=== PATIENT | male | born 1980 | race Caucasian/White ===

== ENCOUNTER 2017-07-21 00:08 | Inpatient (IN) | payer BC, OTHER ==
[~2017-07-21] VITALS: Ht 182.9 cm; Wt 68.0 kg
[~2017-07-21 00:08] MED LIST: ASCO250T5 PO; FERR325T28 PO; HYDR-3895 PO; QUET300T2 PO
--- NOTE | 2017-07-21 00:19 | NUR ---
PRE ADMISSION NOTE Pt is a 36 y/o male, seen at intake, AAOx4, no SOB with moderate anxiety and restlessness noted at this time. Discussed with patient the admission policies of the unit. Patient is coherent and able to respond to questions appropriately. Pt is ambulatory with steady gait. Vital signs taken and as follows: BP: 98/88, P: 88, R: 16, O2: 98%, T: 98.4, PA: 0. Pt verbalized understanding of instructions and teachings regarding disposal of narcotic and other controlled home medications, unit protocols such as taking of vital signs Q4H and handling and disposal of contraband. Will continue with admission upon pts arrival on the unit.
[2017-07-21] MEDS ORDERED: ACETAMINOPHEN 325 MG TABLET PO PRN (00:30)
[2017-07-21] MEDS ORDERED: LOPERAMIDE HCL 2 MG CAPSULE PO PRN ×2 (00:30)
[2017-07-21] MEDS ORDERED: HYDROXYZINE PAMOATE 25 MG CAPSULE PO PRN ×2 (00:30→13:15)
[2017-07-21] MEDS ORDERED: MAG HYDROX/AL HYDROX/SIMETH 30 ML LIQUID UDC PO PRN (00:30)
[2017-07-21] MEDS ORDERED: IBUPROFEN 400 MG TABLET PO PRN (00:30)
[2017-07-21] MEDS ORDERED: CLONIDINE HCL 0.1 MG TABLET PO PRN (00:30)
[2017-07-21] MEDS ORDERED: DICYCLOMINE HCL 20 MG TABLET PO PRN (00:30)
[2017-07-21] MEDS ORDERED: METHOCARBAMOL 750 MG TABLET PO PRN (00:30)
[2017-07-21] MEDS ORDERED: ONDANSETRON 4 MG/2 ML VIAL IM PRN (00:30)
[2017-07-21] MEDS ORDERED: MIRALAX 17 GM POWD.PACK PO PRN (00:30)
[2017-07-21] MEDS ORDERED: MAGNESIUM HYDROXIDE 30 ML LIQUID UDC PO PRN (00:30)
[2017-07-21] MEDS ORDERED: ONDANSETRON ODT 4 MG TAB.RAPDIS SL PRN (00:30)
[2017-07-21] MEDS ORDERED: LORAZEPAM 1 MG TABLET PO PRN ×2 (00:30)
[2017-07-21] MEDS ORDERED: LORAZEPAM 2 MG/1 ML VIAL IM PRN (00:30)
[2017-07-21] MEDS ORDERED: diphenhydrAMINE 50 MG CAPSULE PO PRN (00:30)
[2017-07-21 01:05] VITALS: BP 98/58
--- NOTE | 2017-07-21 01:05 | NUR ---
ADMISSION NOTE Pt is a 36 y/o male admitted on 07/21/17 for dependence, arrived on the unit at 0105. Pt has NKA, denies history of seizures. Upon admission CIWA 5, COW 4 BP: 98/58, P: 88, R: 16, O2: 98%, T: 98.4, PA: 0. Weight 150, height 60. Pt reports his PCP is Dr. Augustin in [place], smokes 2 packs daily, denies being hospitalized within past 30 days. Pt is able to understand and respond to all questions pertaining to his hospitalization. Substance Abuse History is as follows: 1. Xanax (PO) 12 mg daily, last intake of 4 mg at 1500 on 07/20/17, at this rate for 4 years. 2. Heroin (IV) 0.5 gram daily, last intake 1/8 gram at 2230 on 07/20/17, at this rate for 10 years. 3. Meth (oral inhalation) "about 20 dollars worth" approximately twice monthly, last intake of "about 20 dollars worth" on 07/19/17, at this rate for 5 years. 4. Tobacco 2 packs daily, last intake of two packs on 07/20/17, at this rate for 10 years. Pts longest sober period for 1 year approximately 4 months ago, per pt. Treatment history: Pt reports the following treatment histories: [facility] in [place] for 30 days, 9 years ago, [facility] x 3, "I dont remember when or for how long," [facility] in [place] for 40 days, 4 years ago, and [facility] for 6-7 days, 1.5 years ago. No family medical or substance abuse history. PMH: Migraines, kidney stones (2013), and surgery to his right ankle with no complications (2013). Pt denies any hx of seizures. Pt did not bring any medications from home, but reports taking Seroquel 300 mg and Trazodone 150 mg PO nightly at home. Upon assessment, pt is AAOx4, pt is mildly intoxicated, presents with moderate anxiety and restlessness. Respirations even and unlabored. Denies SOB, chest pain, N/V/D. Bowel sounds active x 4, abdomen soft. PERRLA. Skin intact, no open wounds noted. Pt denies SI/HI. Educational information provided and left at bedside. Pt oriented to room and encouraged to notify staff with any concerns. Safety measures in place. Call light within reach, side rails up x 2 with pads, bed locked and in low position. Will continue to monitor.
[2017-07-21] MEDS ORDERED: QUETIAPINE FUMARATE 200 MG TABLET PO ONE (03:00)
[2017-07-21] MEDS ORDERED: QUETIAPINE FUMARATE 200 MG TABLET ONE (03:21)
--- NOTE | 2017-07-21 03:47 | NUR ---
x 1 SEROQUEL 200 MG ADMINISTRATION Pt requests sleep aid, reports that he typically takes 300 mg Seroquel nightly at home and is "the only successful medication for sleep." Safety measures in place. Call light within reach. Will continue to monitor.
[2017-07-21 04:00] VITALS: BP 85/96
[2017-07-21] MEDS ORDERED: TRAZ-147 PO (04:09)
[2017-07-21 04:28] LABS: *AMPHETAMINE, URINE POSITIVE (NEGATIVE); *BARBITURATE, URINE NEGATIVE (NEGATIVE); *CANNABINOID, URINE NEGATIVE (NEGATIVE); *COCCAINE, URINE NEGATIVE (NEGATIVE); *OPIATE, URINE POSITIVE (NEGATIVE); *PHENCYCLIDINE SCREEN,URINE NEGATIVE (NEGATIVE)
--- NOTE | 2017-07-21 04:47 | NUR ---
PRN SEROQUEL REASSESSMENT Pt is laying in bed with eyes closed. Respirations 16, even and unlabored. Safety measures in place. Call light within reach. Will continue to monitor.
--- NOTE | 2017-07-21 07:15 | NUR ---
END OF SHIFT Pt is a 36 y/o male admitted on 07/21/17 for benzo and opiate dependence. Pt was dependent on 12 mg Xanax PO daily for 8 months, 0.5 gram of heroin IV for 10 years and occasional meth usage. Pt is full code, regular diet, NKA, and fall/seizure precautions. No reported seizure history. Pt reports PMH of migraines, especially during withdrawal. Pt also reports having kidney stones (2013) and right ankle surgery (2013). Pt came in mildly intoxicated during initial assessment. Pt presented with anxiety, restlessness, and irritability. One time order of Seroquel 200 mg administered for sleep aid. Pt reported mild improvement in anxiety and irritability during shift. Last CIWA 4 and COW 3. Slept 3 hours. Intake 1500 ml, void x 1, stool x 0. Safety measures in place. Call light within reach. Pts needs have been met. Endorsed to day shift nurse.
--- NOTE | 2017-07-21 07:30 | NUR ---
START OF SHIFT Pt is a 36 yr old male, A&Ox4. Pt was admitted on 07/21/17 at 0100 for Benzo/Opiate Dependence and is on PRN's for s/s of w/d. Received report from shift engineer nurse. Pt received Seroquel x1 for sleep aid. Medication was effective. Last COWS score was 3, CIWA score was 4 at 0400. Pt is currently in bed sleeping with respirations even and unlabored. No acute distress noted. RR is 16. Pt is on fall and seizure precautions. Bed kept in low position and locked with side rails up x2. Call light is within reach. Will continue to monitor.
[2017-07-21 07:49] LABS: ETHANOL < 3 MG/DL (0-0)
[2017-07-21 07:56] LABS: ALANINE AMINOTRANSFERASE 20 U/L (16-63); ALKALINE PHOSPHATASE 92 U/L (50-136); AMYLASE 48 U/L (25-115); ASPARTATE AMINOTRANSFERASE 19 U/L (15-37); BILIRUBIN,TOTAL 0.3 mg/dL (0.2-1.0); CARBON DIOXIDE 29 mmol/L (21-32); CHLORIDE 102 mmol/L (98-107); CREATININE 0.9 mg/dL (0.6-1.3); GLUCOSE 94 mg/dL (74-106); LIPASE 117 U/L (73-393); MAGNESIUM 1.9 mg/dL (1.8-2.4); POTASSIUM 3.8 mmol/L (3.5-5.1); TOTAL PROTEIN, SERUM 6.7 g/dL (6.4-8.2); UREA NITROGEN, BLOOD 11 mg/dL (7-18)
--- NOTE | 2017-07-21 08:00 | NUR ---
COWS AND CIWA DEFERRED COWS and CIWA was deferred. Pt is not able to assessed d/t pt is asleep with respirations even and unlabored. RR is 16. Safety precautions observed. Will continue to monitor.
[2017-07-21 08:05] VITALS: BP 95/56
[2017-07-21 08:57] LABS: THYROID STIMULATING HORMONE 0.575 mIU/mL (0.358-3.740)
[2017-07-21] MEDS: MULTIVITAMINS,THERAPEUTIC TABLET PO SCH (09:00)
[2017-07-21] MEDS ORDERED: INFLUENZA VACCINE 2017-2018 0.5 ML DISP.SYRIN IM ONE (09:00)
--- NOTE | 2017-07-21 09:36 | NUR ---
MEDICATION HELD Multivitamin and influenza was held d/t pt was too sedative. Pt is arousable to touch but is unable to wake up. RR 16. Safety precautions observed. Call light is within reach. will continue to monitor.
[2017-07-21 12:00] VITALS: BP 92/49
[2017-07-21] MEDS ORDERED: BUPRENORPHINE HCL 2 MG TAB.SUBL SL SCH (13:00)
[2017-07-21] MEDS ORDERED: LORAZEPAM 1 MG TABLET PO SCH (13:00)
[2017-07-21 14:14] LABS: BASOPHILS % (AUTO) 0.8 % (0.0-2.0); EOSINOPHILS # (AUTO) 0.1 K/uL (0.0-0.7); HEMATOCRIT 34.8 % (40-50); HEMOGLOBIN 11.5 G/DL (14.0-18.0); LYMPHOCYTES # (AUTO) 2.8 K/UL (0.8-4.8); LYMPHOCYTES % (AUTO) 45.8 % (20.5-51.5); MEAN CORPUSCULAR HEMOGLOBIN 27.8 UUG (27.0-31.0); MEAN CORPUSCULAR HGB CONC 33 g/dL (32.0-37.0); MEAN CORPUSCULAR VOLUME 84.2 FL (82.0-92.0); MONOCYTES # (AUTO) 0.8 K/UL (0.1-1.30); MONOCYTES % (AUTO) 12.8 % (0.0-11.0); NEUTROPHILS # (AUTO) 2.3 K/UL (1.8-8.9); NEUTROPHILS % (AUTO) 38.6 % (38.5-71.5); PLATELET COUNT (AUTO) 214 K/UL (150-450); RED BLOOD CELL COUNT(AUTO) 4.14 MIL/UL (4.7-6.1); WHITE BLOOD COUNT (AUTO) 5.9 K/UL (4.0-11.2)
[2017-07-21 16:00] VITALS: BP 97/53
[2017-07-21] MEDS: BUPRENORPHINE HCL 2 MG TAB.SUBL SL SCH ×2 (17:00→20:47)
[2017-07-21] MEDS: LORAZEPAM 1 MG TABLET PO SCH ×2 (17:59→20:41)
[2017-07-21] MEDS ORDERED: QUETIAPINE FUMARATE 200 MG TABLET PO SCH (18:00)
--- NOTE | 2017-07-21 18:00 | NUR ---
MEDICATION HELD Subutex 4mg SL and Ativan 2mg PO as scheduled at 1700 and Seroquel 200mg PO as scheduled at 1800 was held. Pt is too sedative and is unable to be woken up. Transportation Security Screener tried several attempts to wake up pt for medication but pt refuses to wake up. Pt is arousable to touch. RR 16. VS are WNL. Dr. Perez is made aware. Safety precautions are observed. Will continue to monitor.
--- NOTE | 2017-07-21 18:48 | NUR ---
END OF SHIFT Pt is a 36 yr old male, A&Ox4. Pt was admitted on 07/21/17 for Benzo/Opiate Dependence and is to start on 5 day Ativan and 5 day Subutex taper today on 07/21/17. Pt has been observed with increase drowsiness and has remained in be throughout the day. Pt did not attended any group sessions. Subutex, Ativan and Seroquel was held at 1800 d/t pt was too sedative. COWS and CIWA score was deferred at 0800, 1200, and 1600, pt was asleep. No PRN's were given during the day. Pt remains in bed, resting with respirations even and unlabored. No acute distress noted. RR is 16. Pt is on fall and seizure precautions. Bed kept in low position and locked with side rails up x2. Call light is within reach.
--- NOTE | 2017-07-21 19:15 | NUR ---
START OF SHIFT Pt is a 36 y/o male admitted on for benzo and opiate dependence. Pt was dependent on 12 mg Xanax PO daily for 8 months, 0.5 gram heroin IV for 10 years and occasional meth usage. Pt is full code, regular diet, NKA, and on fall/seizure precautions. No reported seizure history. Pt reports PMH of migraines, especially during widthdrawal. Pt also reports having PMH of kidney stones and right ankle surgery in 2013. Day shift nurse reports that COWS, CIWAS, and all scheduled medications were deferred/held d/t pt sleeping and presented with sedation throughout day shift. Upon assessment pt is laying in bed with eyes closed with TV on and responds to verbal cues and light touch. Pt presents with sweats, mild to moderate anxiety, irritability, headache and mild body aches. Respirations 18, even and unlabored. Denies N/V/D. Denies chest pain or SOB. Medications due. Safety measures in place. Call light within reach. Will continue to monitor.
[2017-07-21 20:00] VITALS: BP 89/50
--- NOTE | 2017-07-21 20:40 | NUR ---
SUBUTEX 4 MG HELD AND PRN ROBAXIN ADMINISTERED Subutex at 2100 held d/t BP 92/49, orders to hold if BP < 90/60 and pt is aroused only by light touch. PRN Robaxin administered d/t reports of body aches and headache. Safety measures in place. Call light within reach. Will continue to monitor.
[2017-07-21] MEDS ORDERED: TRAZODONE 100 MG TABLET PO SCH (21:00)
[2017-07-22] VITALS: BP 104/55
--- NOTE | 2017-07-22 | NUR ---
CIWA/COWS DEFERRED Pt is laying in bed with eyes closed. Aroused by light touch. CIWA/COWS deferred, to be assessed when pt is awake per orders. Respirations 18, even and unlabored. Safety measures in place. Call light within reach. Will continue to monitor.
[2017-07-22] MEDS ORDERED: QUETIAPINE FUMARATE 200 MG TABLET PO ONE (00:30)
[2017-07-22] MEDS ORDERED: QUETIAPINE FUMARATE 100 MG TABLET ONE (00:48)
[2017-07-22 04:00] VITALS: BP 89/44
--- NOTE | 2017-07-22 04:00 | NUR ---
CIWA/COWS DEFERRED Pt is laying in bed with eyes closed, CIWA/COW to be assessed when pt is fully awake per orders. Respirations 18, even and unlabored. Safety measures in place. Call light within reach. Will continue to monitor.
[2017-07-22 07:06] LABS: HEPATITIS B SURFACE AG Negative (Negative)
--- NOTE | 2017-07-22 07:13 | NUR ---
END OF SHIFT Pt is a 36 y/o male admitted on for benzo and opiate dependence. Pt was dependent on 12 mg Xanax PO daily for 8 months, 0.5 gram heroin IV for 10 years and occasional meth usage. Pt is full code, regular diet, NKA, and on fall/seizure precautions. No reported seizure history. Pt reports PMH of migraines, especially during withdrawal. Pt also reports having PMH of kidney stones and right ankle surgery in 2013. Pt presented with sweats, mild to moderate anxiety, irritability, runny nose, headache and mild body aches. Scheduled medications and PRN Robaxin administered, effective in S/S of withdrawal AEB pt slept through the night. Scheduled Subutex held at 2100 d/t BP 89/50 (orders to be held if BP < 90/60) and pt was responsive only to light or moderate touch. Last COW 5 CIWA 6. Slept 11 hours. Intake 855 ml, void x 2, stool x 0. Safety measures in place Call light within reach. Pts needs have been met. Endorsed to day shift nurse.
--- NOTE | 2017-07-22 07:14 | NUR ---
Start of shift note SBAR report rcv'd. Pt was admitted for benzo and opiate dependence and methamphetamine use. Pt is a full code, on a regular diet and denies any allergies. Pt has a PMHx of migraines, kidney stones and R ankle surgery in 2013. Pt is on a 5 day ativan and 5 day subutex taper. Pt is currently resting in bed, pt states that he just wants to sleep at this time. Will continue to monitor pt. All needs addressed at this time. Will continue to monitor pt.
[2017-07-22 08:00] VITALS: BP 103/50
--- NOTE | 2017-07-22 08:00 | NUR ---
COWS/CIWA deferred COWS/CIWA deferred. Pt is sleeping. Attempted x3 to wake up pt to assess for COWS/CIWA. Pt unable to complete a sentence.
[2017-07-22] MEDS ORDERED: INFLUENZA VACCINE 2017-2018 0.5 ML DISP.SYRIN IM ONE (09:00)
[2017-07-22] MEDS: BUPRENORPHINE HCL 2 MG TAB.SUBL SL SCH ×3 (09:00→21:08)
[2017-07-22] MEDS: LORAZEPAM 1 MG TABLET PO SCH ×4 (09:00→21:07)
[2017-07-22] MEDS ORDERED: TUBERCULIN,PURIF.PROT.DERIV. 5 TU/0.1 ML TEST ID ONE (09:00)
[2017-07-22] MEDS: MULTIVITAMINS,THERAPEUTIC TABLET PO SCH (09:00)
--- NOTE | 2017-07-22 09:00 | NUR ---
Medications held Pt refused influenza and TB. Pt able to state "I don't feel good". However, when medications were brought to pt, pt is unable to wake up to answer questions other than to say "No" when offered TB/Influenza. Dr Perez is aware.
--- NOTE | 2017-07-22 11:30 | NUR ---
Late administration Dr Perez on unit, stated to give pt dose of ativan late. Medication given late. Pt refused to answer questions pertaining to CIWA assessment. Will continue to monitor pt.
[2017-07-22 12:00] VITALS: BP 90/45
[2017-07-22 16:40] VITALS: BP 105/60
--- NOTE | 2017-07-22 16:44 | NUR ---
Late administration Pt 1500 medications subutex and ativan administered late d/t sedation. Dr Perez aware. Will continue to monitor pt.
--- NOTE | 2017-07-22 18:51 | NUR ---
End of shift note Pt was admitted for benzo and opiate dependence and methamphetamine use. Pt has a PMHx of migraines, kidney stones and R ankle surgery in 2013. Pt is a full code, on a regular diet and denies any allergies. Pt is on a 5 day ativan and 5 day subutex taper, first dose of Subutex was held d/t sedation. Pt took other medications late during the shift d/t sedation. Pt slept most of the shift, was easily aroused to by touch. Pt did not require any PRN medication during the shift. Pt has no complaints at this time. Pt had a COWS of 8 and CIWA of 7 at 1600. Will endorse SBAR to oncoming nurse.
[2017-07-22 20:00] VITALS: BP 105/62
--- NOTE | 2017-07-22 20:00 | NUR ---
Start of shift note Received 36 y/o px was admitted for benzo and opiate dependence and methamphetamine use. Px reported NKA, on full code, on a regular diet. Px has a PMHx of migraines, kidney stones and R ankle surgery in 2013. Pt is on a 5 day ativan and 5 day subutex taper.During the rounds at 1930, px reported heightened anxiety. All needs addressed at this time. We'll continue to monitor.
[2017-07-22] MEDS: GABAPENTIN 300 MG CAPSULE PO SCH (21:07)
[2017-07-22] MEDS: QUETIAPINE FUMARATE 200 MG TABLET PO SCH (21:08)
--- NOTE | 2017-07-22 21:08 | NUR ---
PRN Benadryl Px requested Benadryl to help him sleep for tonight. Benadryl 50 mg/cap, 1 cap given PO as PRN med. We'll continue to monitor.
--- NOTE | 2017-07-22 22:10 | NUR ---
Reassessment after Benadryl Px is sound asleep. Respirations are even and unlabored. RR= 15. We'll continue to monitor.
--- NOTE | 2017-07-23 | NUR ---
COWS and CIWA deferred COWS and CIWA deferred at this moment due to the px is sleeping, to assess if the px is awake per doctor's order. We'll continue to monitor.
[2017-07-23 00:56] VITALS: BP 90/60
[2017-07-23 04:00] VITALS: BP 90/60
--- NOTE | 2017-07-23 07:08 | NUR ---
End of shift note 36 y/o px was admitted for benzo and opiate dependence and methamphetamine use. Jose has NKA, on full code, on a regular diet. Jose has a PMHx of migraines, kidney stones and R ankle surgery in 2013. Px is on a 5 day ativan and 5 day subutex taper. During the shift, Px requested Benadryl to help him sleep for tonight. Benadryl 50 mg/cap, 1 cap given PO as PRN med. Oral intake of 700 ml, voided 1x, no BM. Slept for 7 hrs. Respirations are even and unlabored. We'll continue to monitor.
--- NOTE | 2017-07-23 07:24 | NUR ---
START OF SHIFT NOTE: Received report from restaurant shift leader nurse. 36 y/o male admitted for benzo, opiate dependence and methamphetamine use. Pt is on a 5 day Ativan and Subutex tapers. Tolerating well. Pt is alert and oriented X4. Color good, skin warm and dry. Respirations even and unlabored. Resting in bed. Safety precautions observed. Call light within reach.
[2017-07-23] MEDS ORDERED: BUPRENORPHINE HCL 2 MG TAB.SUBL SL SCH (09:00)
[2017-07-23 09:07] VITALS: BP 90/60
[2017-07-23] MEDS: GABAPENTIN 300 MG CAPSULE PO SCH ×3 (09:15→21:02)
[2017-07-23] MEDS: LORAZEPAM 1 MG TABLET PO SCH ×4 (09:15→21:03)
[2017-07-23] MEDS: MULTIVITAMINS,THERAPEUTIC TABLET PO SCH (09:15)
--- NOTE | 2017-07-23 09:26 | NUR ---
VSS COWS 9 CIWA 9 c/o body aches, anxiety, sweating and fine tremors of hands.
[2017-07-23] MEDS ORDERED: IBUPROFEN 600 MG TABLET PO PRN (11:30)
--- NOTE | 2017-07-23 11:30 | NUR ---
Pictures taken X 4 and placed in chart
[2017-07-23] MEDS ORDERED: KETOROLAC TROMETHAMINE 30 MG INJ IM PRN (12:00)
[2017-07-23 12:11] VITALS: BP 104/58
--- NOTE | 2017-07-23 13:00 | NUR ---
VSS CIWA 8 Pt c/o anxiety, mild tremors and sweating
[2017-07-23] MEDS: CLONIDINE HCL 0.1 MG TABLET PO SCH ×2 (14:21→21:02)
[2017-07-23] MEDS: BACLOFEN 10 MG TABLET PO SCH ×2 (14:21→21:02)
[2017-07-23] MEDS: BUPRENORPHINE HCL 2 MG TAB.SUBL SL SCH ×2 (14:21→21:03)
--- NOTE | 2017-07-23 14:22 | NUR ---
COWS 9 C/O gross tremors, sweating, anxiety and muscle aches
[2017-07-23 16:00] VITALS: BP 112/73
--- NOTE | 2017-07-23 16:00 | NUR ---
Pt endorsed to RUAB Briscoe
--- NOTE | 2017-07-23 16:01 | NUR ---
Assumed Care Pt is a 36 year old male admitted for Benzo/Opiate dependence, placed on 5 day Ativan and 5 day Subutex taper. PMH: Migraines, Kidney stones and right ankle surgery. NKA, regular diet, fall/seizure precautions and full code. At time of assessment, pt is in room, alert/oriented x4, presents with mild anxiety, skin flushed, respirations even/unlabored, denies SOB/chest pain, denies n/v/d. Safety measures in place, call light within reach, side rails up x2, bed locked and in low position. Will continue to monitor.
--- NOTE | 2017-07-23 16:33 | NUR ---
Client was prompted by therapist to attend daily group sessions at 11am and 3:30pm. Client stated that he would consider attending but did not give a definitive answer.
[2017-07-23 20:00] VITALS: BP 125/80
[2017-07-23] MEDS: QUETIAPINE FUMARATE 200 MG TABLET PO SCH (21:04)
[2017-07-24] VITALS (7 sets, daily range): BP systolic 89–123; BP diastolic 56–80
--- NOTE | 2017-07-24 | NUR ---
Vital Signs/CIWA/COWS deferred BP 90/59, pulse 72, resp 12, Spo2 98% room air, temp 98, no reports of pain CIWA/COWS deferred due to pt sleeping, to assess while pt is awake as ordered. Safety measures in place. Will continue to monitor.
--- NOTE | 2017-07-24 04:00 | NUR ---
Vital Signs/CIWA/COWS deferred BP 89/56, pulse 79, resp 12, Spo2 99% room air, temp 98, no reports of pain CIWA/COWS deferred due to pt sleeping, to assess while pt is awake as ordered. Safety measures in place. Will continue to monitor.
--- NOTE | 2017-07-24 07:00 | NUR ---
End of Shift Pt is a 36 year old male admitted for Benzo/Opiate dependence, placed on 5 day Ativan and 5 day Subutex taper. PMH: Migraines, Kidney stones and right ankle surgery. NKA, regular diet, fall/seizure precautions and full code. During shift, Pt reported feeling anxious, reports mild chills, body/joint aches, tremors visible - scheduled taper medications administered, latest COWS 7 and CIWA 6. Motrin 400mg PRN and Trazodone 50mg PRN administered. Pt slept for 7 hours, intake of 850 ml PO, voids x1 and stool x0. Safety measures in place, call light within reach, side rails up x2, bed locked and in low position. Endorsed to day shift nurse.
--- NOTE | 2017-07-24 07:53 | NUR ---
START OF SHIFT Rcvd endorsement from ongoing nurse, client is in room, he is a/o x 4, he presents with anxious mood, flat affect, he is fully ambulatory. He reports anxiety, restless legs, decreased appetite, fatigue, and chills. Client reports migraines specially during detox, PRN Imitrex 50mg available. Client has scattered dry scabs from self picking on bilateral arms, back and neck. Encourage client to attend group therapy for skills to maintain sober, he verbalized understanding. Encourage client to increase PO fluid intake as tolerated to facilitate detox. Client is a 36 yo male, admitted to [facility] for withdrawal from alprazolam and heroin. He is on 5 day Ativan / Subutex taper (day 4), tolerating well with no ASE. Last CIWA 6 /COWS 7 @ 1999. Client had an uneventful night, he slept 7 hrs. Client reported NKA, full code, regular diet. Client denies a hx of withdrawal-induced seizure. Side rails x 2 up/padded, bed in lowest/lock position. Call light within reach.
[2017-07-24] MEDS: MULTIVITAMINS,THERAPEUTIC TABLET PO SCH (09:30)
[2017-07-24] MEDS: BACLOFEN 10 MG TABLET PO SCH (09:30)
[2017-07-24] MEDS: GABAPENTIN 300 MG CAPSULE PO SCH (09:30)
[2017-07-24] MEDS: BUPRENORPHINE HCL 2 MG TAB.SUBL SL SCH ×3 (09:30→20:34)
[2017-07-24] MEDS: LORAZEPAM 1 MG TABLET PO SCH ×3 (09:30→20:33)
[2017-07-24] MEDS: CLONIDINE HCL 0.1 MG TABLET PO SCH ×3 (09:31→20:33)
[2017-07-24] MEDS: GABAPENTIN 400 MG CAPSULE PO SCH ×2 (14:25→20:33)
[2017-07-24] MEDS: BACLOFEN 20 MG TABLET PO SCH ×2 (14:26→20:33)
[2017-07-24] MEDS: SUMATRIPTAN SUCCINATE 50 MG TABLET PO PRN (16:53)
--- NOTE | 2017-07-24 16:53 | NUR ---
PRN Imitrex 50mg PO administered for migraine 01/20. Will continue to monitor. Call light within reach.
--- NOTE | 2017-07-24 17:53 | NUR ---
Reassessment PRN Imitrex 50mg PO effective, client reports relief from migraine 0/10. Call light within reach.
--- NOTE | 2017-07-24 19:26 | NUR ---
END OF SHIFT Endorsed client to incoming nurse, client is a 36 yo male, admitted to [facility] for withdrawal from alprazolam and heroin. He is on 5 day Ativan / Subutex taper (day 4), tolerating well with no ASE. Last CIWA 8 /COWS 6 @ 1600. PRN Imitrex 50mg PO for migraine, noted effective. Client is in room, he is a/o x 4, he continues to presents with anxious mood, flat affect, he is fully ambulatory. Client has scattered dry scabs from self picking on bilateral arms, back and neck. Client compliant with group therapy. Adequate PO fluid intake 2801mL, void x 4, stool x 1. Client reported NKA, full code, regular diet. Client denies a hx of withdrawal-induced seizure. Side rails x 2 up/padded, bed in lowest/lock position. Call light within reach.
--- NOTE | 2017-07-24 19:33 | NUR ---
Start of Shift Patient is a 36 year old male admitted to [facility] on 07-21-17 for benzo and opiate detox. patient is on a 5 day Ativan and 5 day Subutex taper. Patient last CIWA 6 and COWS 8 at 1600. Patient has PMH of Migraines, Kidney stones, and Surgical history of r ankle repair in 2013. Patient is on Seizure and fall precaution. No past seizure history noted. He is a full code, on a regular diet, and has NKA. Patient up and active in community at change of shift. No complaints offered. Vital signs remain stable. Report received from AM nurse.
[2017-07-24] MEDS: FERROUS SULFATE 325 MG TABEC PO SCH (20:34)
[2017-07-24] MEDS: QUETIAPINE FUMARATE 200 MG TABLET PO SCH (21:26)
[2017-07-25] VITALS: BP 126/84
--- NOTE | 2017-07-25 04:00 | NUR ---
CIWA/COWS DEFERRED PATIENT REFUSED 0400 VITAL SIGNS CIWA/COWS DEFERRED FOR SLEEP PATIENT RESTING COMFORTABLY IN BED WITH EYES CLOSED. BREATHING EVEN AND UNLABORED RESPIRATIONS 18
--- NOTE | 2017-07-25 07:00 | NUR ---
End of shift Patient is a 36 year old male admitted to [facility] on 07-21-17 for Benzo and Opiate Detox. He remains on a 5 day Ativan and 5 day Subutex taper. Patient is on seizure and fall precaution. He is a full code, on a regular diet, and has NKA. VS at 2000 BP 123/80, P 83, R 18, T 97.6 SPO2 96% on RA. COWS 3 CIWA 2. VS at 0000 BP 126/84, P 84, R 14, SPO2 99% on RA, T 97.6 CIWA 2, COWS 3. Patient slept a total of 7 hours. Intake 1065 ML output 2 VOIDS. Report given to AM nurse.
--- NOTE | 2017-07-25 07:50 | NUR ---
START OF SHIFT Rcvd endorsement from ongoing nurse, client is in room, he is a/o x 4, he presents with depressed mood, flat affect, he continued yawning, watery eyes, he is withdrawn. Client is fully ambulatory. He reports chills, feeling anxious and restless, but tired, because he did not have a good night sleep. Scattered dry scabs noted on bilateral forearms, x 1 on back and x 1 on R side of neck, no treatment needed. Encourage client to attend group therapy for skills to maintain sober. Encourage client to increase PO fluid intake as tolerated to facilitate detox. Client is a 36 yo male, admitted to [facility] for withdrawal from alprazolam and heroin. He is on last of 5 day Ativan / Subutex taper, tolerating well with no ASE. Last CIWA 2 /COWS 3 @ 2400. Client had an uneventful night, he slept 7 hrs. Client reported NKA, full code, regular diet. Client denies a hx of withdrawal-induced seizure. Side rails x 2 up/padded, bed in lowest/lock position. Call light within reach.
[2017-07-25] MEDS: ASCORBIC ACID 250 MG TABLET PO SCH (08:46)
[2017-07-25] MEDS: MULTIVITAMINS,THERAPEUTIC TABLET PO SCH (08:46)
[2017-07-25] MEDS: GABAPENTIN 400 MG CAPSULE PO SCH (08:46)
[2017-07-25] MEDS: FERROUS SULFATE 325 MG TABEC PO SCH ×2 (08:46→21:47)
[2017-07-25] MEDS: BACLOFEN 20 MG TABLET PO SCH ×3 (08:46→21:49)
[2017-07-25] MEDS: SUMATRIPTAN SUCCINATE 50 MG TABLET PO PRN (08:46)
--- NOTE | 2017-07-25 08:46 | NUR ---
PRN Imitrex 50mg PO administered for migraine 02/19. Will continue to monitor. Call light within reach.
[2017-07-25] MEDS: CLONIDINE HCL 0.1 MG TABLET PO SCH ×3 (08:48→21:47)
[2017-07-25 08:49] VITALS: BP 119/76
[2017-07-25] MEDS ORDERED: LORAZEPAM 1 MG TABLET PO SCH ×2 (09:00→15:00)
[2017-07-25] MEDS ORDERED: BUPRENORPHINE HCL 2 MG TAB.SUBL SL SCH (09:00)
--- NOTE | 2017-07-25 09:46 | NUR ---
Reassessment PRN Imitrex 50mg PO effective, client reports relief from migraine 0/10. Call light within reach.
[2017-07-25 12:30] VITALS: BP 127/73
[2017-07-25] MEDS ORDERED: LORAZEPAM 1 MG TABLET PO ONE (12:30)
--- NOTE | 2017-07-25 13:06 | NUR ---
One time Ativan 2mg PO for anxiety, restlessness, agitation, inability to stay still, CIWA 10. Call light within reach. Will continue to monitor.
--- NOTE | 2017-07-25 14:06 | NUR ---
Reassessment One time Ativan 2mg PO effective, CIWA 6, client appears less anxious, he is able to sit and watch TV. Call light within reach.
[2017-07-25] MEDS: GABAPENTIN 300 MG CAPSULE PO SCH ×2 (14:23→21:47)
[2017-07-25] MEDS ORDERED: OXCARBAZEPINE 150 MG TABLET PO ONE (15:00)
[2017-07-25 16:00] VITALS: BP 113/73
[2017-07-25] MEDS: LORAZEPAM 1 MG TABLET PO SCH ×2 (17:44→21:47)
--- NOTE | 2017-07-25 19:09 | NUR ---
END OF SHIFT Endorsed client to incoming nurse, client is a 36 yo male, admitted to [facility] for withdrawal from alprazolam and heroin. He completed 5 day Subutex taper. He is on 6 day extended Ativan taper, tolerating well with no ASE. Last CIWA 6 /COWS 4 @ 1600. PRN Imitrex 50mg PO for migraine, noted effective. One time doze Ativan 2mg for CIWA 10, noted effective CIWA 6. Client is in room, he is a/o x 4, he continues to presents with anxious mood, flat affect, he is fully ambulatory. Client compliant with group therapy. Adequate PO fluid intake 2801mL, void x 4, stool x 1. Client reported NKA, full code, regular diet. Client denies a hx of withdrawal-induced seizure. Side rails x 2 up/padded, bed in lowest/lock position. Call light within reach.
--- NOTE | 2017-07-25 19:40 | NUR ---
Start of Shift Patient is a 36 year old male admitted to [facility] on 07-21-17 for benzo and opiate detox. patient has completed a five day subutex taper, and remains on an extended ativan taper for benzo detox. Patient last CIWA 6 and COWS 5 at 1600. Patient has PMH of Migraines, Kidney stones, and Surgical history of r ankle repair in 2013. Patient is on Seizure and fall precaution. No past seizure history noted. He is a full code, on a regular diet, and has NKA. Patient up and active in community attending group at change of shift. No complaints offered. Vital signs remain stable. Report received from AM nurse.
[2017-07-25 20:00] VITALS: BP 120/81
[2017-07-25] MEDS: OXCARBAZEPINE 150 MG TABLET PO SCH (21:47)
[2017-07-25] MEDS: QUETIAPINE FUMARATE 200 MG TABLET PO SCH (21:48)
[2017-07-26] VITALS: BP 116/78
--- NOTE | 2017-07-26 | NUR ---
COWS/CIWA deferred for sleep
[2017-07-26 04:00] VITALS: BP 123/71
--- NOTE | 2017-07-26 04:00 | NUR ---
USMAN DEFERRED CITRAY DEFERRED AT 0400. PATIENT ASLEEP. Addendum: 07/26/17 at 0422 by WERO SWANSON RN RAIN/USMAN DEFERRED AT 0400 PATIENT ASLEEP. RESTING COMFORTABLY IN BED. EYES CLOSED. RESPIRATIONS 16. REFUSED VITAL SIGNS.
--- NOTE | 2017-07-26 06:51 | NUR ---
End of shift Patient is a 36 year old male admitted to [facility] on 07-21-17 for Benzo and Opiate Detox. He completed his subutex taper. He remains on an Ativan taper for benzo detox. Patient is on seizure and fall precaution. He is a full code, on a regular diet, and has NKA. VS at 2000 BP 120/81, P 94, R 19, T 97.6 SPO2 99% on RA. COWS 4 CIWA 6. VS at 0000 BP 116/78, P 90, R 16, SPO2 99% on RA . Patient slept a total of 7 hours. Intake 1460 ML output 2 VOIDS & 1 BM. Safety measures in place. Bed locked and in lowest position with 2 side rails up. Call light within reach. Report given to AM nurse.
--- NOTE | 2017-07-26 07:30 | NUR ---
START OF SHIFT Pt 36 y/o male admitted for benzo and opiate dependence. Pt received in room on bed with eyes closed resting, but easily arousable to name. Pt alert and oriented to name, place, and time. [place]. Skin warm and dry to touch. Respirations even and unlabored. Bilateral hand tremors noted slightly. It was reported that pt slept for 7 hours last night. Bed on lowest position with side rails x2 up for safety. Call light within reach. No distress noted at this time.
[2017-07-26 08:00] VITALS: BP 106/64
[2017-07-26] MEDS ORDERED: LORAZEPAM 1 MG TABLET PO SCH (09:00)
[2017-07-26] MEDS: OXCARBAZEPINE 150 MG TABLET PO SCH (09:27)
[2017-07-26] MEDS: BACLOFEN 20 MG TABLET PO SCH ×3 (09:27→21:29)
[2017-07-26] MEDS: MULTIVITAMINS,THERAPEUTIC TABLET PO SCH (09:27)
[2017-07-26] MEDS: ASCORBIC ACID 250 MG TABLET PO SCH (09:27)
[2017-07-26] MEDS: GABAPENTIN 300 MG CAPSULE PO SCH ×3 (09:27→21:28)
[2017-07-26] MEDS: CLONIDINE HCL 0.1 MG TABLET PO SCH ×3 (09:27→21:29)
[2017-07-26] MEDS: FERROUS SULFATE 325 MG TABEC PO SCH ×2 (09:27→21:29)
[2017-07-26 12:00] VITALS: BP 109/71
[2017-07-26] MEDS ORDERED: OXCA300T4 PO (13:36)
[2017-07-26] MEDS ORDERED: DICY20TA28 PO (13:36)
[2017-07-26] MEDS ORDERED: DIPH50CA37 PO (13:36)
[2017-07-26] MEDS ORDERED: FERR325T28 PO (13:36)
[2017-07-26] MEDS ORDERED: QUET200T PO (13:36)
[2017-07-26] MEDS ORDERED: ASCO250T5 PO (13:36)
[2017-07-26] MEDS ORDERED: GABA-534 PO (13:36)
[2017-07-26] MEDS ORDERED: HYDR-3895 PO (13:36)
[2017-07-26] MEDS ORDERED: IBUP-1955 PO (13:36)
[2017-07-26] MEDS ORDERED: BACL20TA PO (13:36)
[2017-07-26] MEDS ORDERED: CLON0.1T14 PO (13:36)
[2017-07-26] MEDS ORDERED: OXCARBAZEPINE 150 MG TABLET PO ONE (15:00)
[2017-07-26 16:52] VITALS: BP 102/64
--- NOTE | 2017-07-26 18:33 | NUR ---
END OF SHIFT Pt 36 y/o male admitted for benzo and opiate dependence. Pt alert and oriented to name, place, and time. [place]. Skin warm and dry to touch. Respirations even and unlabored. Bilateral hand tremors noted slightly. Pt observed mostly in recreation room throughout the day. Pt attended group activity today. Pt was seen by MD today. Pt medication compliant and tolerated well. No ASE noted. Pt is scheduled to be discharged tomorrow. Bed on lowest position with side rails x2 up for safety. Call light within reach. No distress noted at this time.
--- NOTE | 2017-07-26 19:35 | NUR ---
Start of Shift Patient is a 36 year old male admitted to [facility] on 07-21-17 for benzo and opiate detox. patient has completed a five day subutex taper, and ativan taper. Patient last CIWA 2 and COWS 2 at 1600. Patient is on Seizure and fall precaution. No past seizure history noted. He is a full code, on a regular diet, and has NKA. Patient up and active in community attending groups. No complaints offered. Vital signs remain stable. Safety measures in place, bed locked and in lowest position, 2 side rails up, call light within reach. Report received from AM nurse.
[2017-07-26 20:00] VITALS: BP 115/76
[2017-07-26] MEDS: OXCARBAZEPINE 300 MG TABLET PO SCH (21:29)
[2017-07-26] MEDS: QUETIAPINE FUMARATE 200 MG TABLET PO SCH (21:29)
--- NOTE | 2017-07-27 | NUR ---
CIWA/COWS deferred Vital signs refused Patient refused 0000 Vital signs. Stating he wants to sleep. CIWA and COWS deferred. Patient resting comfortably in bed. Eyes closed R 16.
--- NOTE | 2017-07-27 04:00 | NUR ---
CIWA/COWS deferred Vital signs refused Patient refused 0400 Vital signs. Stating he wants to sleep. CIWA and COWS deferred. Patient resting comfortably in bed. Eyes closed R 16.
--- NOTE | 2017-07-27 07:08 | NUR ---
End of shift note Patient is a 36 year old male admitted to [facility] on 07-21-17 for Benzo and opiate detox. patient has completed a five day subutex and ativan taper. Patient is on Seizure and fall precaution. No past seizure history noted. He is a full code, on a regular diet, and has NKA. VS at 1999 BP 115/76, P 97, SPO2 99% on RA, T 98.6, R 18. COWS 3, CIWA 2. Intake 1146 ml output 3 voids. Slept total of 7 hours. Safety measures in place, bed locked and in lowest position, 2 side rails up, call light within reach. Report received from AM nurse.
--- NOTE | 2017-07-27 07:34 | NUR ---
START OF SHIFT NOTE: Received report from public health officer nurse. Patient is a 36 year old male admitted to [facility] on 07-21-17 for benzo and opiate dependence. Patient has completed a five day subutex taper, and ativan taper. To be discharged this AM. Pt is alert and oriented X4. Color good, skin warm and dry. Respirations even and unlabored. Safety precautions observed. Call light within reach.
[2017-07-27] MEDS: FERROUS SULFATE 325 MG TABEC PO SCH (08:23)
[2017-07-27] MEDS: ASCORBIC ACID 250 MG TABLET PO SCH (08:23)
[2017-07-27] MEDS: BACLOFEN 20 MG TABLET PO SCH (08:23)
[2017-07-27] MEDS: MULTIVITAMINS,THERAPEUTIC TABLET PO SCH (08:24)
[2017-07-27] MEDS: GABAPENTIN 300 MG CAPSULE PO SCH (08:24)
[2017-07-27] MEDS: OXCARBAZEPINE 300 MG TABLET PO SCH (08:24)
[2017-07-27] MEDS: CLONIDINE HCL 0.1 MG TABLET PO SCH (08:24)
[2017-07-27] MEDS: SUMATRIPTAN SUCCINATE 50 MG TABLET PO PRN (08:27)
--- NOTE | 2017-07-27 08:42 | NUR ---
VSS Discharge papers signed. No home meds. C/O migraine. Imitrex prn given
[2017-07-27 08:45] VITALS: BP 118/72
== END 2017-07-27 10:20 | disposition home or self-care (01) | DRG 895 ==
LOC: SRC 00:08
PROVIDERS: ADMIT Internal Medicine; ATTEND Internal Medicine
PROC: HZ2ZZZZ Detoxification Services for Substance Abuse Treatment (ICD-10-PCS; principal; 2017-07-21)
PROC: HZ41ZZZ Group Counseling for Substance Abuse Treatment, Behavioral (ICD-10-PCS; 2017-07-23)
DX: F11.23 Opioid dependence with withdrawal (principal); D50.9 Iron deficiency anemia, unspecified; F39 Unspecified mood [affective] disorder; Z59.0 Homelessness; F17.210 Nicotine dependence, cigarettes, uncomplicated; G43.909 Migraine, unspecified, not intractable, without status migrainosus; F15.23 Other stimulant dependence with withdrawal; F13.230 Sedative, hypnotic or anxiolytic dependence with withdrawal, uncomplicated; Z87.442 Personal history of urinary calculi; Z59.1 Inadequate housing
CPT/HCPCS: 36415; 70030-TC; 80307; 80324; 80346; 80361; 83690; 83735; 84443; 85025; 86580; 86592; 86705; 86803; 87340; 87806; 90686; A4663; G0480; Q0163